=== PATIENT | female | born 2000 | race Caucasian/White ===

== ENCOUNTER 2022-07-25 11:30 | Inpatient (IN) | payer OTHER ==
[~2022-07-25] VITALS: Ht 165.1 cm; Wt 83.5 kg
[2022-07-25] VITALS (14 sets, daily range): BP systolic 104–141; BP diastolic 54–79
[2022-07-25] MEDS ORDERED: PRENTAB9 PO (11:49)
[2022-07-25] MEDS ORDERED: HOME MED LIST COMPLETE! XX SCH (11:50)
[2022-07-25] MEDS ORDERED: LACTATED RINGER'S 1000 ML IV STA (12:25)
[2022-07-25 13:02] LABS: HEMATOCRIT 34.5 % (36.0-47.0); HEMOGLOBIN 11.3 g/dl (12.0-15.5); MEAN CORPUSCULAR HEMOGLOBIN 27.4 pg (27.0-33.0); MEAN CORPUSCULAR HGB CONC 32.8 g/dl (32.0-36.5); MEAN CORPUSCULAR VOLUME 83.5 fl (80.0-96.0); PLATELET COUNT, AUTOMATED 254 10^3/uL (150-450); RED BLOOD COUNT 4.13 10^6/uL (4.00-5.40); WHITE BLOOD COUNT 10.5 10^3/uL (4.0-10.0)
[2022-07-25] MEDS ORDERED: OXYTOCIN DRIP 30 UNITS in IV 1 EA IV PRN (13:20)
[2022-07-25] MEDS ORDERED: CARBOPROST TROMETHAMINE 250 MCG/ML AMP IM PRN (13:20)
[2022-07-25] MEDS ORDERED: METHYLERGONOVINE MALEATE 0.2MG/ML 1ML VIAL IM PRN (13:20)
[2022-07-25] MEDS ORDERED: TRANEXAMIC ACID INJection 1,000 MG in NS 100 ML IV PRN (13:20)
[2022-07-25] MEDS ORDERED: LACTATED RINGER'S 1000 ML IV PRN (13:20)
[2022-07-25] MEDS ORDERED: LIDOCAINE 1% MDV 20ML VIAL INFIL PRN (13:20)
[2022-07-25] MEDS: LR 1,000 ML IV SCH ×2 (13:49→22:06)
[2022-07-25] MEDS ORDERED: ePHEDrine SULFATE 25 MG/5 ML(5MG/ML) SYRINGE IVP PRN (16:15)
[2022-07-25] MEDS ORDERED: LR 500 ML IV PRN (16:15)
[2022-07-25] MEDS ORDERED: diphenhydrAMINE 50MG/ML VIAL IV PRN (16:15)
[2022-07-25] MEDS ORDERED: NALOXONE INJ 0.4MG/1ML VIAL IV PRN (16:15)
[2022-07-25] MEDS ORDERED: ONDANSETRON 4MG 2ML VIAL IV PRN (16:15)
[2022-07-25] MEDS ORDERED: FENTANYL/ROPIVACAINE/NACL BAG 100 ML EPIDURAL SCH (16:15)
[2022-07-25] MEDS ORDERED: EPIDURAL/PCA KEYS XX PRN (16:15)
[2022-07-25] MEDS ORDERED: OXYTOCIN DRIP 30 UNITS in IV 1 EA IV SCH (18:10)
[2022-07-26] VITALS (10 sets, daily range): BP systolic 109–131; BP diastolic 60–78
[2022-07-26 00:35] LABS: CORD GAS HCO3 V 18.8 MEQ/L; CORD GAS O2 SAT V 75.5 %; CORD GAS PCO2 V 35.5 mmHg; CORD GAS PH V 7.342 UNITS; CORD GAS PO2 V 34.2 mmHg; CORD GAS SBC V 19.1 MEQ/L; CORD GAS TCO2 V 19.9 MEQ/L
[2022-07-26 00:37] LABS: CORD GAS ABE A -11.7; CORD GAS HCO3 A 17.6 MEQ/L; CORD GAS O2 SAT A 37.4 %; CORD GAS PCO2 A 52.6 mmHg; CORD GAS PH A 7.142 UNITS; CORD GAS PO2 A 22.4 mmHg; CORD GAS SBC A 14.2 MEQ/L; CORD GAS TCO2 A 19.2 MEQ/L
[2022-07-26] MEDS ORDERED: AMPICILLIN SOD 2 GM in D5W MINI-BAG PLUS 100 ML IV ONE (00:40)
[2022-07-26] MEDS ORDERED: RHOGAM 300MCG (1500IU) INJ IM SCH (00:50)
[2022-07-26] MEDS ORDERED: DIBUCAINE 1% OINTMENT 30GM TOP PRN (00:50)
[2022-07-26] MEDS ORDERED: MOM 30ML SUSPENSION UDC PO PRN (00:50)
[2022-07-26] MEDS ORDERED: DOCUSATE SODIUM 100MG CAPSULE PO PRN (00:50)
[2022-07-26] MEDS ORDERED: ANUSOL HC CREAM 30GM TOP PRN (00:50)
[2022-07-26] MEDS ORDERED: GENTAMICIN 100 MG in IV 1 EA IV ONE (01:00)
[2022-07-26] MEDS: ACETAMINOPHEN 500 MG TAB PO PRN ×2 (08:01→18:13)
[2022-07-26] MEDS: IBUPROFEN 800 MG TAB PO PRN ×2 (08:01→18:13)
[2022-07-26] MEDS: PRENATAL VITAMINS CHEWABLE TABLET PO SCH (09:00)
[2022-07-27 06:00] VITALS: BP 116/70
[2022-07-27] MEDS: IBUPROFEN 800 MG TAB PO PRN ×2 (06:30→19:10)
[2022-07-27] MEDS: PRENATAL VITAMINS CHEWABLE TABLET PO SCH (07:48)
[2022-07-27 18:00] VITALS: BP 118/68
[2022-07-28 05:43] VITALS: BP 117/72
[2022-07-28] MEDS ORDERED: MEASLES,MUMPS,RUBELLA VACCINE INJ (MMR-II) SC.IMMUN ONE (09:00)
[2022-07-28] MEDS ORDERED: IBUP80TA PO (09:34)
[2022-07-28] MEDS ORDERED: ACET-683 PO (09:34)
[2022-07-28] MEDS ORDERED: COLA100C5 PO (09:34)
[2022-07-28] MEDS: PRENATAL VITAMINS CHEWABLE TABLET PO SCH (09:51)
== END 2022-07-28 12:30 | disposition home or self-care (01) | DRG 807 ==
LOC: M LDO 11:30 → M LDI 13:09 → M OBS 07-26 05:28
PROVIDERS: ADMIT Registered Nurse; ATTEND Registered Nurse
PROC: 10907ZC Drainage of Amniotic Fluid, Therapeutic from Products of Conception, Via Natural or Artificial Opening (ICD-10-PCS; 2022-07-25)
PROC: 10E0XZZ Delivery of Products of Conception, External Approach (ICD-10-PCS; principal; 2022-07-26)
PROC: 0KQM0ZZ Repair Perineum Muscle, Open Approach (ICD-10-PCS; 2022-07-26)
DX: O76 Abnormality in fetal heart rate and rhythm complicating labor and delivery (principal); Z37.0 Single live birth; Z3A.40 40 weeks gestation of pregnancy; O70.1 Second degree perineal laceration during delivery

== ENCOUNTER → 2023-09-30 | Outpatient (REF) ==
[~2023-09-30] MED LIST: ACET-683 PO; COLA100C5 PO; IBUP80TA PO; PRENTAB9 PO
== END ==
LOC: M PLAIMG 08:04
PROVIDERS: ATTEND Internal Medicine
DX: R52 Pain, unspecified (principal)